=== PATIENT | male | born 1935 | race Two or more races ===

== ENCOUNTER 2023-07-13 12:02 | Inpatient (IN) | payer OTHER ==
[~2023-07-13] VITALS: Ht 172.7 cm; Wt 82.6 kg
[2023-07-13] MEDS ORDERED: SYNTHROID75 MCG PO (12:50)
[2023-07-13] MEDS ORDERED: COZAAR100 MG (12:51)
[2023-07-13] MEDS ORDERED: ZESTRIL5 MG (12:51)
[2023-07-13] MEDS ORDERED: CHILDREN'S ASPI81 MG (12:53)
[2023-07-13] MEDS ORDERED: ZOCOR20 MG (12:53)
[2023-07-13] MEDS ORDERED: ZYRTEC10 M3 PO (12:53)
[2023-07-13] MEDS ORDERED: TOPROL XL25 M1 (12:54)
[2023-07-13] MEDS ORDERED: SYMBICORT 16010.2 GM (12:54)
[2023-07-13] MEDS ORDERED: AZELASTINE137 MCG/0. (12:56)
[2023-07-13] MEDS ORDERED: HUMALOG100 UNIT/2 SQ (12:57)
[2023-07-13] MEDS ORDERED: ARICEPT10 MG PO (12:57)
[2023-07-13] MEDS ORDERED: LANTUS SOL100 UNIT/1 (12:57)
[2023-07-13 13:41] LABS: ABG PH 7.448 (7.35-7.45); ABG pCO2 59.2 mmHg (35-45)
[2023-07-13 13:42] LABS: ABG PO2 48.8 mmHg (80-100); BASE EXCESS 13.2 mmol/l; BICARBONATE 40.1 mmol/l (23-25); SaO2 87.4 %; Tco2 41.9 mmol/l; allen test SATISFACTORY; o2 21 %; puncture site RADIAL RIGHT
[2023-07-13 13:58] LABS: HEMATOCRIT 36.4 % (39.0-48.0); HEMOGLOBIN 11.7 g/dL (13-16.00); MEAN CELL VOLUME 89.9 fL (80.0-100.00); MEAN CORPUSCULAR HEMOGLOBIN 28.9 pg (27.00-32.0); MEAN CORPUSCULAR HGB CONC 32.1 g/dl (32.0-36.0); PLATELET COUNT 178 K/uL (150-450); RED BLOOD COUNT 4.05 M/uL (4.00-6.00); RED CELL DISTRIBUTION WIDTH 15.8 % (11.5-14.5)
[2023-07-13 14:55] LABS: URINE APPEARANCE Clear; URINE BILIRRUBIN Negative (NEGATIVE); URINE BLOOD Small; URINE COLOR Yellow; URINE GLUCOSE Negative (NEGATIVE); URINE LEUKOCYTE Negative; URINE NITRATE Negative
[2023-07-13 14:59] LABS: URINE BACTERIA 18.8 uL (0.0-1933); URINE EPITHELIAL CELLS 6.6 uL (0.0-38.8); URINE RBC 36.2 uL (0.0-20.8)
[2023-07-13 15:00] LABS: URINE PROTEIN 100 (NEGATIVE)
[2023-07-13 15:31] LABS: ALBUMIN 2.6 gm/dL (3.4-5.0); BILIRUBIN TOTAL 0.69 mg/dL (0.3-1.2); BILIRUBIN,CONJUGATED 0.3 mg/dL (0.0-0.2); BILIRUBIN,UNCONJUGATED 0.39 mg/dL (0.0-0.6); CALCIUM 8.9 mg/dL (8.5-10.1); CREATININE SERUM 1.07 mg/dL (0.70-1.30); GFR 65.07; POTASSIUM 3.54 mEq/L (3.5-5.1); TOTAL PROTEIN 6.4 gm/dL (6.4-8.2)
[2023-07-13 20:33] LABS: ABG PH 7.433 (7.35-7.45); ABG PO2 105.5 mmHg (80-100); ABG pCO2 63.7 mmHg (35-45); BICARBONATE 41.6 mmol/l (23-25); SaO2 98.4 %; Tco2 43.5 mmol/l; allen test SATISFACTORY; o2 50 %; puncture site RADIAL RIGHT
[2023-07-14 04:49] LABS: HEMATOCRIT 34.5 % (39.0-48.0); HEMOGLOBIN 11.6 g/dL (13-16.00); MEAN CELL VOLUME 87.7 fL (80.0-100.00); MEAN CORPUSCULAR HEMOGLOBIN 29.5 pg (27.00-32.0); MEAN CORPUSCULAR HGB CONC 33.6 g/dl (32.0-36.0); PLATELET COUNT 162 K/uL (150-450); RED BLOOD COUNT 3.93 M/uL (4.00-6.00); RED CELL DISTRIBUTION WIDTH 15.7 % (11.5-14.5)
[2023-07-14 05:18] LABS: ALBUMIN 2.5 gm/dL (3.4-5.0); BILIRUBIN TOTAL 0.79 mg/dL (0.3-1.2); CALCIUM 8.7 mg/dL (8.5-10.1); GFR 70.36; GLOBULINA 3.6 G/DL (2.4-3.5); MAGNESIUM 1.6 mg/dL (1.8-2.4); PHOSPHOROUS 3.6 mg/dL (2.5-4.9); POTASSIUM 3.44 mEq/L (3.5-5.1); TOTAL PROTEIN 6.1 gm/dL (6.4-8.2)
[2023-07-14 05:32] LABS: C-REACTIVE PROTEIN 1.02 MG/DL (0.00-0.29); TSH 0.495 uIU/mL (0.358-3.74)
[2023-07-14 11:58] LABS: ABG PH 7.455 (7.35-7.45)
[2023-07-14 11:59] LABS: ABG PO2 108.3 mmHg (80-100); ABG pCO2 71.4 mmHg (35-45); BASE EXCESS 20.5 mmol/l; BICARBONATE 49.1 mmol/l (23-25); Tco2 51.3 mmol/l; o2 50 %
[2023-07-14 12:00] LABS: allen test SATISFACTORY; puncture site RADIAL RIGHT
[2023-07-14 12:01] LABS: SaO2 98.7 %
[2023-07-14 14:28] LABS: ABG PH 7.452 (7.35-7.45)
[2023-07-14 14:29] LABS: ABG PO2 98.8 mmHg (80-100); ABG pCO2 67.3 mmHg (35-45); BASE EXCESS 17.9 mmol/l; BICARBONATE 45.9 mmol/l (23-25); o2 32 %; puncture site RADIAL RIGHT
[2023-07-14 14:30] LABS: allen test SATISFACTORY
[2023-07-14 14:31] LABS: SaO2 98.3 %
[2023-07-16 07:55] LABS: HEMATOCRIT 34.9 % (39.0-48.0); HEMOGLOBIN 11.5 g/dL (13-16.00); MEAN CELL VOLUME 89.4 fL (80.0-100.00); MEAN CORPUSCULAR HEMOGLOBIN 29.3 pg (27.00-32.0); MEAN CORPUSCULAR HGB CONC 32.8 g/dl (32.0-36.0); PLATELET COUNT 159 K/uL (150-450); RED BLOOD COUNT 3.91 M/uL (4.00-6.00); RED CELL DISTRIBUTION WIDTH 15.9 % (11.5-14.5)
[2023-07-16 08:34] LABS: CALCIUM 8.2 mg/dL (8.5-10.1); CREATININE SERUM 1.5 mg/dL (0.70-1.30); GFR 44.07; PHOSPHOROUS 3.3 mg/dL (2.5-4.9); POTASSIUM 3.81 mEq/L (3.5-5.1)
[2023-07-18 07:34] LABS: HEMATOCRIT 32.9 % (39.0-48.0); MEAN CELL VOLUME 89.1 fL (80.0-100.00); MEAN CORPUSCULAR HGB CONC 32.7 g/dl (32.0-36.0); PLATELET COUNT 176 K/uL (150-450); RED BLOOD COUNT 3.69 M/uL (4.00-6.00); RED CELL DISTRIBUTION WIDTH 15.9 % (11.5-14.5)
[2023-07-18 07:36] LABS: HEMOGLOBIN 10.7 g/dL (13-16.00); MEAN CORPUSCULAR HEMOGLOBIN 28.9 pg (27.00-32.0)
[2023-07-18 07:45] LABS: ALBUMIN 2.6 gm/dL (3.4-5.0); BILIRUBIN TOTAL 0.59 mg/dL (0.3-1.2); CALCIUM 8.7 mg/dL (8.5-10.1); CREATININE SERUM 1.4 mg/dL (0.70-1.30); GFR 47.72; GLOBULINA 3.1 G/DL (2.4-3.5); POTASSIUM 4.04 mEq/L (3.5-5.1); TOTAL PROTEIN 5.7 gm/dL (6.4-8.2)
[2023-07-18 14:57] LABS: ABG PH 7.416 (7.35-7.45); ABG PO2 72.2 mmHg (80-100); BASE EXCESS 7.1 mmol/l; BICARBONATE 33.3 mmol/l (23-25); SaO2 94.9 %; Tco2 34.9 mmol/l; allen test SATISFACTORY; o2 21 %; puncture site RADIAL RIGHT
[2023-07-19 11:42] LABS: HEMATOCRIT 31.5 % (39.0-48.0); HEMOGLOBIN 10.3 g/dL (13-16.00); MEAN CELL VOLUME 88.7 fL (80.0-100.00); MEAN CORPUSCULAR HEMOGLOBIN 28.9 pg (27.00-32.0); MEAN CORPUSCULAR HGB CONC 32.6 g/dl (32.0-36.0); PLATELET COUNT 182 K/uL (150-450); RED BLOOD COUNT 3.56 M/uL (4.00-6.00)
[2023-07-19 12:29] LABS: CALCIUM 8.6 mg/dL (8.5-10.1); CREATININE SERUM 1.33 mg/dL (0.70-1.30); GFR 50.63; MAGNESIUM 1.8 mg/dL (1.8-2.4); PHOSPHOROUS 3.4 mg/dL (2.5-4.9); POTASSIUM 4.07 mEq/L (3.5-5.1)
[2023-07-19 20:07] LABS: ABG PH 7.433 (7.35-7.45); ABG pCO2 60.4 mmHg (35-45)
[2023-07-19 20:08] LABS: ABG PO2 69.3 mmHg (80-100); BASE EXCESS 12.3 mmol/l; BICARBONATE 39.4 mmol/l (23-25); SaO2 94.8 %; Tco2 41.3 mmol/l; allen test SATISFACTORY; o2 21 %; puncture site RADIAL RIGHT
[2023-07-20 07:00] LABS: CALCIUM 8.4 mg/dL (8.5-10.1); CREATININE SERUM 1.01 mg/dL (0.70-1.30); GFR 69.55; MAGNESIUM 1.9 mg/dL (1.8-2.4); PHOSPHOROUS 2.7 mg/dL (2.5-4.9); POTASSIUM 4.08 mEq/L (3.5-5.1)
[2023-07-20] MEDS ORDERED: SIMVASTATIN40 MG PO (13:36)
[2023-07-20] MEDS ORDERED: ELIQUIS5 MG PO (13:36)
[2023-07-20] MEDS ORDERED: ISOSORBIDE MONO60 MG PO (13:36)
[2023-07-20] MEDS ORDERED: SYMBICORT 16010.2 GM IH (13:36)
[2023-07-20] MEDS ORDERED: ARICEPT10 MG PO (13:36)
[2023-07-20] MEDS ORDERED: SYNTHROID75 MCG PO (13:36)
[2023-07-20] MEDS ORDERED: LOSARTAN POTAS100 MG PO (13:36)
[2023-07-20] MEDS ORDERED: AMLODIPINE BESYL5 MG PO (13:36)
[2023-07-20] MEDS ORDERED: HUMALOG100 UNIT/2 SQ (13:36)
[2023-07-20] MEDS ORDERED: LANTUS SOL100 UNIT/1 SUBCUTANEO (13:36)
[2023-07-20] MEDS ORDERED: CARVEDILOL12.5 MG PO (13:36)
== END 2023-07-20 16:25 | disposition home or self-care (01) | DRG 292 ==
LOC: ER 12:03 → ICU-2 19:21 → ICU 07-15 06:18 → MEDI 07-17 11:13
PROVIDERS: General Practice; Internal Medicine; Internal Medicine Geriatric Medicine; ADMIT Specialist; ATTEND Specialist
PROC: BB24ZZZ Computerized Tomography (CT Scan) of Bilateral Lungs (ICD-10-PCS; principal; 2023-07-13)
PROC: B246ZZZ Ultrasonography of Right and Left Heart (ICD-10-PCS; 2023-07-13)
PROC: 3E0F7GC Introduction of Other Therapeutic Substance into Respiratory Tract, Via Natural or Artificial Opening (ICD-10-PCS; 2023-07-13)
PROC: 5A0935A Assistance with Respiratory Ventilation, Less than 24 Consecutive Hours, High Flow/Velocity Cannula (ICD-10-PCS; 2023-07-13)
PROC: 4A12X4Z Monitoring of Cardiac Electrical Activity, External Approach (ICD-10-PCS; 2023-07-17)
DX: I13.0 Hypertensive heart and chronic kidney disease with heart failure and stage 1 through stage 4 chronic kidney disease, or unspecified chronic kidney disease (principal); J44.1 Chronic obstructive pulmonary disease with (acute) exacerbation; N17.8 Other acute kidney failure; I50.89 Other heart failure; I48.91 Unspecified atrial fibrillation; E03.8 Other specified hypothyroidism; E11.22 Type 2 diabetes mellitus with diabetic chronic kidney disease; I11.0 Hypertensive heart disease with heart failure; J98.01 Acute bronchospasm; Z79.4 Long term (current) use of insulin; R09.02 Hypoxemia

== ENCOUNTER 2023-07-26 12:54 | Inpatient (IN) | payer OTHER ==
[~2023-07-26] VITALS: Ht 172.7 cm; Wt 85.7 kg
[~2023-07-26 12:54] MED LIST: AMLODIPINE BESYL5 MG PO; ARICEPT10 MG PO; AZELASTINE137 MCG/0.; CARVEDILOL12.5 MG PO; CHILDREN'S ASPI81 MG; COZAAR100 MG; ELIQUIS5 MG PO; HUMALOG100 UNIT/2 SQ; ISOSORBIDE MONO60 MG PO; LANTUS SOL100 UNIT/1; LANTUS SOL100 UNIT/1 SUBCUTANEO; LOSARTAN POTAS100 MG PO; SIMVASTATIN40 MG PO; SYMBICORT 16010.2 GM; SYMBICORT 16010.2 GM IH; SYNTHROID75 MCG PO; TOPROL XL25 M1; ZESTRIL5 MG; ZOCOR20 MG; ZYRTEC10 M3 PO
[2023-07-26] MEDS ORDERED: HYDROCHLOROTHIA25 MG PO (13:59)
[2023-07-26 16:46] LABS: URINE APPEARANCE Clear; URINE BILIRRUBIN Negative (NEGATIVE); URINE BLOOD Moderate; URINE COLOR Yellow; URINE GLUCOSE Negative (NEGATIVE); URINE LEUKOCYTE Negative; URINE NITRATE Negative; URINE PROTEIN 30 (NEGATIVE)
[2023-07-26 16:47] LABS: URINE BACTERIA 847.8 uL (0.0-1933); URINE EPITHELIAL CELLS 2.6 uL (0.0-38.8); URINE RBC 65.2 uL (0.0-20.8); URINE WBC 29.2 uL (0.0-23.2)
[2023-07-26 18:01] LABS: HEMATOCRIT 31.5 % (39.0-48.0); HEMOGLOBIN 10.1 g/dL (13-16.00); MEAN CELL VOLUME 88.2 fL (80.0-100.00); MEAN CORPUSCULAR HEMOGLOBIN 28.2 pg (27.00-32.0); PLATELET COUNT 161 K/uL (150-450); RED BLOOD COUNT 3.56 M/uL (4.00-6.00)
[2023-07-26 18:21] LABS: INR 1.23; PARTIAL THROMBOPLASTIN TIME 30.8 SECONDS (22.0-34.0); PROTHROMBIN TIME 12.7 SECONDS (9.0-11.5)
[2023-07-26 18:29] LABS: ALBUMIN 2.4 gm/dL (3.4-5.0); BILIRUBIN TOTAL 0.72 mg/dL (0.3-1.2); CALCIUM 7.7 mg/dL (8.5-10.1); CREATININE SERUM 0.99 mg/dL (0.70-1.30); GFR 71.18; GLOBULINA 3.4 G/DL (2.4-3.5); POTASSIUM 3.49 mEq/L (3.5-5.1); TOTAL PROTEIN 5.8 gm/dL (6.4-8.2)
[2023-07-26 20:58] LABS: ABG PO2 65.8 mmHg (80-100); ABG pCO2 46.9 mmHg (35-45); BASE EXCESS 7.5 mmol/l
[2023-07-26 20:59] LABS: BICARBONATE 32.6 mmol/l (23-25); allen test SATISFACTORY; o2 21 %; puncture site RADIAL RIGHT
[2023-07-26 21:00] LABS: SaO2 94.2 %
[2023-07-28 06:10] LABS: HEMATOCRIT 30.8 % (39.0-48.0); HEMOGLOBIN 10.4 g/dL (13-16.00); MEAN CELL VOLUME 88.7 fL (80.0-100.00); MEAN CORPUSCULAR HGB CONC 33.8 g/dl (32.0-36.0); PLATELET COUNT 161 K/uL (150-450); RED BLOOD COUNT 3.47 M/uL (4.00-6.00); RED CELL DISTRIBUTION WIDTH 17.1 % (11.5-14.5)
[2023-07-28 06:52] LABS: URINE APPEARANCE Clear; URINE BACTERIA 585.8 uL (0.0-1933); URINE BILIRRUBIN Negative (NEGATIVE); URINE BLOOD Large; URINE COLOR Yellow; URINE LEUKOCYTE Small; URINE NITRATE Negative; URINE PROTEIN 30 (NEGATIVE); URINE RBC 1645.5 uL (0.0-20.8); URINE WBC 580.1 uL (0.0-23.2)
[2023-07-28 06:58] LABS: URINE GLUCOSE >=1000 MG/DL (NEGATIVE)
[2023-07-28 07:25] LABS: ALBUMIN 2.3 gm/dL (3.4-5.0); BILIRUBIN TOTAL 0.77 mg/dL (0.3-1.2); CALCIUM 7.4 mg/dL (8.5-10.1); CHOL HDL RATIO 3.1 (0-5.0); CREATININE SERUM 1.42 mg/dL (0.70-1.30); GFR 46.94; GLOBULINA 2.8 G/DL (2.4-3.5); MAGNESIUM 1.5 mg/dL (1.8-2.4); POTASSIUM 3.68 mEq/L (3.5-5.1); T4 FREE 1.13 NG/ML (0.76-1.46); TOTAL PROTEIN 5.1 gm/dL (6.4-8.2); TSH 4.27 uIU/mL (0.358-3.74)
[2023-07-28 07:31] LABS: PROSTATIC SPECIFIC ANTIGEN 15.7 NG/ML (0.010-4.00)
[2023-07-30 05:46] LABS: CALCIUM 7.9 mg/dL (8.5-10.1); CREATININE SERUM 1.29 mg/dL (0.70-1.30); GFR 52.44; POTASSIUM 3.59 mEq/L (3.5-5.1)
[2023-07-30 06:36] LABS: ALBUMIN 2.3 gm/dL (3.4-5.0); BILIRUBIN TOTAL 0.48 mg/dL (0.3-1.2); CALCIUM 7.6 mg/dL (8.5-10.1); CREATININE SERUM 1.29 mg/dL (0.70-1.30); GFR 52.44; GLOBULINA 2.9 G/DL (2.4-3.5); POTASSIUM 3.45 mEq/L (3.5-5.1); TOTAL PROTEIN 5.2 gm/dL (6.4-8.2)
[2023-08-01 06:11] LABS: HEMATOCRIT 29.8 % (39.0-48.0); HEMOGLOBIN 9.9 g/dL (13-16.00); MEAN CELL VOLUME 86.5 fL (80.0-100.00); MEAN CORPUSCULAR HEMOGLOBIN 28.9 pg (27.00-32.0); MEAN CORPUSCULAR HGB CONC 33.4 g/dl (32.0-36.0); RED BLOOD COUNT 3.44 M/uL (4.00-6.00); RED CELL DISTRIBUTION WIDTH 16.7 % (11.5-14.5)
[2023-08-01 06:33] LABS: CALCIUM 7.8 mg/dL (8.5-10.1); CREATININE SERUM 1.19 mg/dL (0.70-1.30); GFR 57.56; POTASSIUM 3.8 mEq/L (3.5-5.1)
[2023-08-01 08:19] LABS: PLATELET COUNT 130 K/uL (150-450)
== END 2023-08-02 14:38 | disposition home or self-care (01) | DRG 291 ==
LOC: ER 12:54 → MEDI 07-27 10:01 → SEC-K 07-27 10:01 → MEDI 07-27 16:34
PROVIDERS: General Practice; Internal Medicine; ADMIT Specialist; ATTEND Specialist
PROC: 4A12X4Z Monitoring of Cardiac Electrical Activity, External Approach (ICD-10-PCS; principal; 2023-07-27)
DX: I11.0 Hypertensive heart disease with heart failure (principal); I50.33 Acute on chronic diastolic (congestive) heart failure; J96.02 Acute respiratory failure with hypercapnia; J96.01 Acute respiratory failure with hypoxia; N17.9 Acute kidney failure, unspecified; N39.0 Urinary tract infection, site not specified; J44.1 Chronic obstructive pulmonary disease with (acute) exacerbation; I48.91 Unspecified atrial fibrillation; G30.9 Alzheimer's disease, unspecified; F02.80 Dementia in other diseases classified elsewhere, unspecified severity, without behavioral disturbance, psychotic disturbance, mood disturbance, and anxiety; E03.9 Hypothyroidism, unspecified; B95.2 Enterococcus as the cause of diseases classified elsewhere; E11.65 Type 2 diabetes mellitus with hyperglycemia; Z79.4 Long term (current) use of insulin

== ENCOUNTER 2023-08-09 16:51 | Inpatient (IN) | payer OTHER ==
[~2023-08-09] VITALS: Ht 172.7 cm; Wt 82.6 kg
[~2023-08-09 16:51] MED LIST changes: +HYDROCHLOROTHIA25 MG PO
[2023-08-09] MEDS ORDERED: ZESTRIL2.5 MG (17:05)
[2023-08-09] MEDS ORDERED: BIDIL TABLET1 EACH (17:05)
[2023-08-09] MEDS ORDERED: SIMVASTATIN5 MG (17:05)
[2023-08-09] MEDS ORDERED: LASIX20 MG (17:05)
[2023-08-09] MEDS ORDERED: ARICEPT5 MG (17:05)
[2023-08-09 18:04] LABS: HEMATOCRIT 26.2 % (39.0-48.0); MEAN CELL VOLUME 89.8 fL (80.0-100.00); PLATELET COUNT 155 K/uL (150-450); RED BLOOD COUNT 2.92 M/uL (4.00-6.00); RED CELL DISTRIBUTION WIDTH 17.3 % (11.5-14.5)
[2023-08-09 18:07] LABS: ABG PH 7.402 (7.35-7.45)
[2023-08-09 18:08] LABS: ABG PO2 81.3 mmHg (80-100); ABG pCO2 60.4 mmHg (35-45); BASE EXCESS 9.5 mmol/l; BICARBONATE 36.7 mmol/l (23-25); SaO2 96.2 %; Tco2 38.6 mmol/l; allen test SATISFACTORY; o2 21 %; puncture site RADIAL RIGHT
[2023-08-09 18:15] LABS: INR 1.26; PARTIAL THROMBOPLASTIN TIME 28.8 SECONDS (22.0-34.0)
[2023-08-09 18:19] LABS: URINE APPEARANCE Clear; URINE BILIRRUBIN Negative (NEGATIVE); URINE BLOOD Large; URINE COLOR Yellow; URINE GLUCOSE Negative (NEGATIVE); URINE LEUKOCYTE Negative; URINE NITRATE Negative; URINE PROTEIN Trace (NEGATIVE); URINE UROBILINOGEN 0.2 E.U./dl
[2023-08-09 18:20] LABS: URINE BACTERIA 12.5 uL (0.0-1933); URINE EPITHELIAL CELLS 5.7 uL (0.0-38.8); URINE RBC 316.1 uL (0.0-20.8); URINE WBC 6.4 uL (0.0-23.2)
[2023-08-09 18:23] LABS: ALBUMIN 2.3 gm/dL (3.4-5.0); BILIRUBIN TOTAL 0.41 mg/dL (0.3-1.2); CREATININE SERUM 1.09 mg/dL (0.70-1.30); GFR 63.7; GLOBULINA 3.5 G/DL (2.4-3.5); POTASSIUM 3.97 mEq/L (3.5-5.1); TOTAL PROTEIN 5.8 gm/dL (6.4-8.2)
[2023-08-09 18:41] LABS: HEMOGLOBIN 8.7 g/dL (13-16.00); MEAN CORPUSCULAR HEMOGLOBIN 29.7 pg (27.00-32.0)
[2023-08-09 22:19] LABS: ABG PH 7.419 (7.35-7.45)
[2023-08-09 22:20] LABS: ABG PO2 136.7 mmHg (80-100); ABG pCO2 62.5 mmHg (35-45); BASE EXCESS 12.1 mmol/l; BICARBONATE 39.6 mmol/l (23-25); SaO2 99.2 %; Tco2 41.5 mmol/l; allen test SATISFACTORY; o2 32 %; puncture site RADIAL RIGHT
[2023-08-10 14:29] LABS: ABG PH 7.427 (7.35-7.45)
[2023-08-10 14:30] LABS: SaO2 88.9 %
[2023-08-10 14:31] LABS: BICARBONATE 40.5 mmol/l (23-25); Tco2 42.5 mmol/l; allen test SATISFACTORY; o2 21 %; puncture site RADIAL RIGHT
[2023-08-10 22:53] LABS: ABG PH 7.398 (7.35-7.45)
[2023-08-10 22:54] LABS: ABG PO2 122.2 mmHg (80-100); ABG pCO2 65.1 mmHg (35-45); BASE EXCESS 11.3 mmol/l; BICARBONATE 39.2 mmol/l (23-25); SaO2 98.8 %; Tco2 41.2 mmol/l; allen test SATISFACTORY; o2 36 %; puncture site RADIAL RIGHT
[2023-08-11 06:45] LABS: INR 1.27; PARTIAL THROMBOPLASTIN TIME 29.9 SECONDS (22.0-34.0); PROTHROMBIN TIME 13.1 SECONDS (9.0-11.5)
[2023-08-11 07:00] LABS: HEMATOCRIT 28.4 % (39.0-48.0); HEMOGLOBIN 9.3 g/dL (13-16.00); MEAN CELL VOLUME 89.6 fL (80.0-100.00); MEAN CORPUSCULAR HEMOGLOBIN 29.5 pg (27.00-32.0); PLATELET COUNT 179 K/uL (150-450); RED BLOOD COUNT 3.17 M/uL (4.00-6.00); RED CELL DISTRIBUTION WIDTH 16.8 % (11.5-14.5)
[2023-08-11 07:15] LABS: ALBUMIN 2.3 gm/dL (3.4-5.0); BILIRUBIN TOTAL 0.49 mg/dL (0.3-1.2); CHOL HDL RATIO 2.8 (0-5.0); CREATININE SERUM 1.11 mg/dL (0.70-1.30); GFR 62.37; GLOBULINA 3.2 G/DL (2.4-3.5); POTASSIUM 3.56 mEq/L (3.5-5.1); TOTAL PROTEIN 5.5 gm/dL (6.4-8.2)
[2023-08-11 07:49] LABS: PROSTATIC SPECIFIC ANTIGEN 6.89 NG/ML (0.010-4.00)
[2023-08-11 13:01] LABS: PLATELET ESTIMATE NORMAL (NORMAL)
[2023-08-13 08:20] LABS: ALBUMIN 2.5 gm/dL (3.4-5.0); BILIRUBIN TOTAL 0.75 mg/dL (0.3-1.2); CALCIUM 8.4 mg/dL (8.5-10.1); CREATININE SERUM 1.12 mg/dL (0.70-1.30); GFR 61.73; GLOBULINA 3.2 G/DL (2.4-3.5); POTASSIUM 3.32 mEq/L (3.5-5.1); TOTAL PROTEIN 5.7 gm/dL (6.4-8.2)
[2023-08-13 08:44] LABS: HEMATOCRIT 32.2 % (39.0-48.0); HEMOGLOBIN 10.7 g/dL (13-16.00); MEAN CELL VOLUME 87.3 fL (80.0-100.00); MEAN CORPUSCULAR HEMOGLOBIN 28.8 pg (27.00-32.0); PLATELET COUNT 201 K/uL (150-450); RED CELL DISTRIBUTION WIDTH 16.9 % (11.5-14.5)
[2023-08-13 13:55] LABS: ABG PH 7.483 (7.35-7.45); ABG PO2 97.5 mmHg (80-100); ABG pCO2 58.8 mmHg (35-45); BASE EXCESS 16.3 mmol/l; BICARBONATE 43.1 mmol/l (23-25); SaO2 98.3 %; Tco2 44.9 mmol/l; allen test SATISFACTORY; o2 32 %; puncture site RADIAL RIGHT
== END 2023-08-16 14:51 | disposition home or self-care (01) | DRG 192 ==
LOC: ER 16:51 → MEDI 08-10 17:13 → SEC-K 08-10 20:05 → MEDI 08-10 20:30
PROVIDERS: General Practice; Internal Medicine Pulmonary Disease; ADMIT Specialist; ATTEND Specialist
PROC: BV44ZZZ Ultrasonography of Scrotum (ICD-10-PCS; principal; 2023-08-09)
PROC: 3E0F7GC Introduction of Other Therapeutic Substance into Respiratory Tract, Via Natural or Artificial Opening (ICD-10-PCS; 2023-08-10)
PROC: BB24ZZZ Computerized Tomography (CT Scan) of Bilateral Lungs (ICD-10-PCS; 2023-08-11)
PROC: 4A12X4Z Monitoring of Cardiac Electrical Activity, External Approach (ICD-10-PCS; 2023-08-11)
PROC: B246ZZZ Ultrasonography of Right and Left Heart (ICD-10-PCS; 2023-08-12)
DX: J44.1 Chronic obstructive pulmonary disease with (acute) exacerbation (principal); N49.2 Inflammatory disorders of scrotum; I48.91 Unspecified atrial fibrillation; N50.89 Other specified disorders of the male genital organs; E11.8 Type 2 diabetes mellitus with unspecified complications; Z79.4 Long term (current) use of insulin; R09.02 Hypoxemia; E03.8 Other specified hypothyroidism; I11.0 Hypertensive heart disease with heart failure